=== PATIENT | male | born 1955 | race African-American/Black ===

== ENCOUNTER 2016-06-20 16:31 | Inpatient (IN) | payer MEDICARE, OTHER ==
[2016-06-20] VITALS (11 sets, daily range): BP systolic 90–102; BP diastolic 55–69
[~2016-06-20] VITALS: Ht 162.6 cm; Wt 52.6 kg
--- NOTE | 2016-06-20 16:41 | NUR ---
AT BEDSIDE FOR EVAL
--- NOTE | 2016-06-20 16:45 | NUR ---
BBRA FROM HD [facility]ENTER FOR BLEEDING THROUGH TRACH S/P BEING SUCTIONED. ACTIVE BLEEDING NOTED. RT AT BS. VSS. NOTED GTUBE. HD ACCESS ON L FA. SAFETY AND COMFORT MEASURES PROVIDED. WILL MONITOR.
[2016-06-20] MEDS ORDERED: DESMOPRESSIN 15 MCG in IV NS 0.9% 50 ML IV ONE (17:00)
[2016-06-20] MEDS ORDERED: DDAVP 20 MCG in IV NS 50 ML IV ONE (17:00)
[2016-06-20] MEDS ORDERED: IV SET PRIMARY PUMP SET 1 EA INFUS.SET MC ONE ×4 (17:07→19:38)
--- NOTE | 2016-06-20 17:07 | NUR ---
IV ACCESS STARTED. ART EDUCATOR AT FOR BLOOD DRAW.
[2016-06-20] MEDS ORDERED: CHOL100044 GT (17:14)
[2016-06-20] MEDS ORDERED: RALT400T GT (17:14)
[2016-06-20] MEDS ORDERED: MOME13HF IH (17:14)
[2016-06-20] MEDS ORDERED: ALBU18HF2 IH (17:14)
[2016-06-20] MEDS ORDERED: LOPI1TAB2 GT (17:14)
[2016-06-20] MEDS ORDERED: IPRA12.9 IH (17:14)
[2016-06-20] MEDS ORDERED: CALC200T23 GT (17:14)
[2016-06-20] MEDS ORDERED: AMLO10TA2 GT (17:14)
[2016-06-20] MEDS ORDERED: [UNRECOGNIZED DRUG - CODE] GT (17:14)
[2016-06-20] MEDS ORDERED: ALBU2.5V13 IH ×2 (17:14)
[2016-06-20] MEDS ORDERED: TIOT4MIS5 IH (17:14)
[2016-06-20] MEDS ORDERED: NICO1PAT44 TD (17:14)
[2016-06-20] MEDS ORDERED: MULT-24 GT (17:14)
[2016-06-20] MEDS ORDERED: IPRA0.2S9 IH ×2 (17:14)
[2016-06-20] MEDS ORDERED: VITA1TAB56 GT (17:14)
[2016-06-20] MEDS ORDERED: WARF10TA4 GT (17:14)
--- NOTE | 2016-06-20 17:14 | NUR ---
CALLED NURSING SUP. FOR TELE BED, INFORMED HER PT HAS HIV
--- NOTE | 2016-06-20 17:18 | NUR ---
PT MEDICATED ORDERED. TO BE MONITORED CLOSELY.
--- NOTE | 2016-06-20 17:18 | NUR ---
GEO AT BS.
--- NOTE | 2016-06-20 17:27 | NUR ---
RT PT BROUGHT INTO ER BY PARAMEDICS FOR SOB. PT IS AWAKE AND ALERT, TRACHED WITH A SHILEY 8. PT SX BLOOD TINGED SECRETIONS. PT PLACED ON VENTILATOR DUE TO RESPIRATORY DISTRESS. VENT SETTINGS NOTED. VENT ALARMS ARE SET AND AUDIBLE WITH BVM BY BEDSIDE. LANG PATH THERAPIST CUFF PRESSURE NOTED. VENT IS PLUGGED INTO RED OUTLET. RN AND MD NOTIFIED AND AWARE. PT APPEARS TO BE COMFORTABLE ON CURRENT VENT SETTINGS. WILL CONTINUE TO MONITOR. Addendum: 06/20/16 at 1734 by KERRY DOS SANTOS RT Amended: Links added.
[2016-06-20 17:36] LABS: CALCIUM, SERUM 9.2 mg/dL (8.5-10.1); CARBON DIOXIDE 29 mmol/L (21-32); CHLORIDE 99 mmol/L (98-107); CREATININE 3.8 mg/dL (0.6-1.3); GFR 20 mL/min (>60); GLUCOSE 204 mg/dL (74-106); SODIUM SERUM 135 mmol/L (136-145); UREA NITROGEN, BLOOD 26 mg/dL (7-18)
[2016-06-20 17:42] LABS: ALANINE AMINOTRANSFERASE 18 U/L (12-78); ALBUMIN 2.2 g/dL (3.4-5.0); ALKALINE PHOSPHATASE 152 U/L (46-116); ASPARTATE AMINOTRANSFERASE 14 U/L (15-37); BILIRUBIN,DIRECT 0.2 mg/dL (0.0-0.2); BILIRUBIN,TOTAL 0.4 mg/dL (0.2-1.0); TOTAL PROTEIN, SERUM 8.6 g/dL (6.4-8.2); TROPONIN I < 0.017 ng/mL (0.00-0.056)
--- NOTE | 2016-06-20 17:46 | NUR ---
PT GOING TO TELE 325-2
[2016-06-20 17:53] LABS: INR 2.19 (0.87-1.13); PROTHROMBIN TIME 24.6 SECS (9.5-12.7)
--- NOTE | 2016-06-20 18:02 | NUR ---
REPORT GIVEN TO GAY PIZARRO FOR TELE ROOM 252-2
[2016-06-20] MEDS ORDERED: IV NS 0.9% 500 ML BAG IV ONE (18:30)
--- NOTE | 2016-06-20 18:33 | NUR ---
CALLED ELECTRIC MOTOR REPAIRER GEOPHYSICAL PROSPECTING SURVEYOR, , TRANSFERRED CALL TO DR. LOPEZ
--- NOTE | 2016-06-20 18:41 | NUR ---
CALLED [facility], PRESENTED PT, AWAITING CALL BACK FROM [facility]
[2016-06-20] MEDS ORDERED: IV NS 0.9% 500 ML IV ONE (18:58)
[2016-06-20] MEDS ORDERED: MEROPENEM 1 G in IV NS 0.9% 100 ML IV ONE (19:00)
[2016-06-20] MEDS ORDERED: LEVOFLOXACIN 750 MG /D5W 150ML 150 ML IV ONE ×2 (19:00→19:21)
--- NOTE | 2016-06-20 19:05 | NUR ---
EPIC PAGED, AIRLINE ATTENDANT
--- NOTE | 2016-06-20 19:12 | NUR ---
CALLED NURSING SUP. TO UPGRADE BED TO [facility]
--- NOTE | 2016-06-20 19:17 | NUR ---
CALLED NURSING SUP. TO UPGRADE TO ICU BED
--- NOTE | 2016-06-20 19:21 | NUR ---
REPORT GIVEN TO ADRIÁN PIZARRO FOR SPEEDY.
[2016-06-20] MEDS ORDERED: MAG HYDROX/AL HYDROX/SIMETH 30 ML UDC PO PRN (19:30)
[2016-06-20] MEDS ORDERED: ZOLPIDEM TARTRATE 5 MG TABLET PO PRN (19:30)
[2016-06-20] MEDS ORDERED: HYDROCODONE/APAP 5/325MG 1 EACH TABLET PO PRN (19:30)
[2016-06-20] MEDS ORDERED: Z GUARD REMEDY 2 OZ OINT TP PRN (19:30)
[2016-06-20] MEDS ORDERED: ONDANSETRON HCL/PF 4 MG/2 ML VIAL IVP PRN (19:30)
[2016-06-20] MEDS ORDERED: MAGNESIUM HYDROXIDE 30 ML UDC PO PRN (19:30)
[2016-06-20] MEDS ORDERED: ACETAMINOPHEN 325 MG TABLET PO PRN (19:30)
[2016-06-20] MEDS ORDERED: IPRATROPIUM NEB FS 0.5 MG/2.5 ML AMPUL.NEB IH PRN (19:30)
[2016-06-20] MEDS ORDERED: ENOXAPARIN SODIUM 40 MG/0.4 ML DISP.SYRIN SQ SCH (19:30)
[2016-06-20] MEDS ORDERED: LEVOFLOXACIN 500 MG /D5W 100ML 500 MG in PREMIX 1 EA IV SCH (19:30)
[2016-06-20] MEDS ORDERED: ALBUTEROL FS 2.5 MG/0.5 ML VIAL.NEB IH PRN (19:30)
[2016-06-20] MEDS ORDERED: MEROPENEM 1 G VIAL IV ONE (19:38)
[2016-06-20] MEDS ORDERED: IV NS 0.9% 100 ML IV ONE (19:38)
[2016-06-20 19:51] LABS: BASOPHILS # (AUTO) 0.1 /CMM (0.0-0.2); BASOPHILS % (AUTO) 0.4 % (0.0-2.0); EOSINOPHILS # (AUTO) 0.1 /CMM (0.0-0.7); EOSINOPHILS % (AUTO) 0.3 % (0.0-6.0); HEMATOCRIT 25 % (39-51); LYMPHOCYTES # (AUTO) 2.1 /CMM (0.8-4.8); LYMPHOCYTES % (AUTO) 9.3 % (20.0-44.0); MEAN CORPUSCULAR HEMOGLOBIN 30 PG (26.0-33.0); MEAN CORPUSCULAR HGB CONC 32 g/dl (31.0-36.0); MEAN CORPUSCULAR VOLUME 95 fL (80-96); MONOCYTES # (AUTO) 1.5 /CMM (0.1-1.30); MONOCYTES % (AUTO) 6.7 % (2.0-12.0); NEUTROPHILS # (AUTO) 18.5 /CMM (1.8-8.9); NEUTROPHILS % (AUTO) 83.3 % (43.0-81.0); PLATELET COUNT (AUTO) 806 /CMM (150-450); RDW COEFFICIENT OF VARIATION 18.6 (11.5-15.0); RED BLOOD CELL COUNT(AUTO) 2.62 MIL/uL (4.5-6.0); WHITE BLOOD COUNT (AUTO) 22.3 K/uL (4.3-11.0)
--- NOTE | 2016-06-20 19:56 | NUR ---
STARTED A SECOND IV ACCESS ON THE RFA G20
[2016-06-20 20:15] LABS: BAND % (MANUAL) 3 % (0.0-5.0); EOSINOPHILS % (MANUAL) 1 % (0-4); LYMPHOCYTES % (MANUAL) 10 % (16-48); MONOCYTES % (MANUAL) 7 % (0-11.0); NEUTROPHILS % (MANUAL) 79 (42-76)
[2016-06-20 20:16] LABS: ANISOCYTOSIS 1+; PLATELET ESTIMATE INCREASED; ROULEAUX 1+
--- NOTE | 2016-06-20 20:23 | NUR ---
REPORT GIVEN TO [facility] FOR SPEEDY.
--- NOTE | 2016-06-20 20:46 | NUR ---
Transported to ICU room 256 via als protocol with RT EMT and RN, no incident noted.
[2016-06-20] MEDS: MEROPENEM 1 G in IV NS 0.9% 100 ML IV SCH (21:00)
--- NOTE | 2016-06-20 21:00 | NUR ---
ICU/FIELD ARTILLERY OFFICER RECEIVED PT FROM ER, PLACED PT ON MONITOR. PICTURE WOUND DOCUMENTATION DONE. RT HERE PLACE PT ON VENT, TOLERATING CURRENT VENT SETTING. ALSO BELONGINGS LIST WAS DONE, WHICH WAS NOT DONE IN ER. PT CLEANED AND REPOSTION. G/TUBE FLUSHED. TRACH WAS CLEANED FROM BLOOD SECRETIONS. MRSA SWAB DONE, WHICH WAS NOT DONE IN ER. CALL LIGHT WITH REACH. PT APPEARS COMFORTABLE ON CURRENT VENT SETTINGS.
[2016-06-20] MEDS: ALBUTEROL FS 2.5 MG/0.5 ML VIAL.NEB IH SCH (21:25)
[2016-06-20] MEDS: IPRATROPIUM NEB FS 0.5 MG/2.5 ML AMPUL.NEB IH SCH (21:25)
--- NOTE | 2016-06-20 22:10 | NUR ---
ICU/HOT REPAIRMAN CALLED GOT PT'S HISTORY, AND ADVANCE DIRECTIVES OF A FULL CODE. CHARGE NURSE ED MADE AWARE OF THIS.
--- NOTE | 2016-06-20 23:55 | NUR ---
ICU/NURSING PROFESSOR CORPORATE OFFICE, BJ PATEL CALLED TO INFORM THAT PT IS ON A SEPTIC PROTOCOL. AND THAT PT SHOULD RECEIVE ANOTHER 1000ML OF FLUID. COOPERATE BJ Azul WAS TOLD THAT THIS PT IS EDRD WITH HD THAT WAS NOT COMPLETE DUE TO BLEEDING, PLUS PT HAS RIGHT SIDE INFILTRATES AND RIGHT SIDE EFFUSION. HE SAID PT IS SUPPOSED TO AT LEAST GET 126/HR OF FLUID TIL 1000ML IS REACH. ALSO INFORMED THIS PERSON ABOUT HISTORY. TOLD TO CALL MD TO GET JUSTIFICATION ON WHY PROTOCOL WAS NOT FOLLOWED, CHARGE NURSE AWARE OF CALL, NOTIFIED MD. LATIC ACID IS 1.5, BLOOD PRESSURE IS CURRENTLY AND HAS BEEN 90'S, 98/63@2400
[2016-06-21] VITALS (69 sets, daily range): BP systolic 89–117; BP diastolic 59–72
--- NOTE | 2016-06-21 00:18 | NUR ---
ICU/DIRECTOR DIGITAL CATALOGUE MD STEWRAT WAS CALLED ABOUT SITUATION AND CALL FROM CORPORATE OFFICE ABOUT SEPSIS PROTOCOL AND NEED FOR ADDITION FLUID. MD STEWART SAID THAT SHE WILL MAKE A NOTE ABOUT THIS AND NO FLUIDS TO BE GIVEN DUE TO ESRD. CHARGE NURSE AWARE OF THIS CALL. AND SHOULD HAVE DOCUMENTATION FROM MD SUPPORTING THIS CONVERSATION
[2016-06-21] MEDS ORDERED: IPRATROPIUM NEB FS 0.5 MG/2.5 ML AMPUL.NEB ONE (01:21)
[2016-06-21] MEDS ORDERED: ALBUTEROL FS 2.5 MG/0.5 ML VIAL.NEB ONE (01:21)
[2016-06-21] MEDS: IPRATROPIUM NEB FS 0.5 MG/2.5 ML AMPUL.NEB IH SCH ×4 (01:25→20:13)
[2016-06-21] MEDS: ALBUTEROL FS 2.5 MG/0.5 ML VIAL.NEB IH SCH ×4 (01:25→20:13)
--- NOTE | 2016-06-21 02:05 | NUR ---
ICU/BRAKE REPAIRER RAILROAD DR. STEWART UP TO SEE PT, NO NEW ORDERS WERE RECEIVED AT THIS TIME. BUT DID SAY PT TO HD TODAY.
[2016-06-21] MEDS ORDERED: MEROPENEM 1 G VIAL IV ONE (03:36)
[2016-06-21] MEDS ORDERED: IV NS 0.9% 250 ML IV PRN (04:00)
[2016-06-21] MEDS ORDERED: IV NS 0.9% 250 ML IV ONE ×2 (04:08→08:30)
[2016-06-21] MEDS ORDERED: IV NS 0.9% 100 ML IV ONE (04:08)
[2016-06-21] MEDS ORDERED: SECONDARY IV SET 1 EA INFUS.SET MC ONE (04:08)
[2016-06-21] MEDS: MEROPENEM 1 G in IV NS 0.9% 100 ML IV SCH (04:17)
[2016-06-21 05:11] LABS: CALCIUM, SERUM 8.2 mg/dL (8.5-10.1); CREATININE 4.7 mg/dL (0.6-1.3); PHOSPHORUS 2.3 mg/dL (2.5-4.9); POTASSIUM 4.7 mmol/L (3.5-5.1)
[2016-06-21 05:33] LABS: BASOPHILS % (AUTO) 0.3 % (0.0-2.0); EOSINOPHILS % (AUTO) 0.3 % (0.0-6.0); LYMPHOCYTES # (AUTO) 0.3 /CMM (0.8-4.8); LYMPHOCYTES % (AUTO) 4.2 % (20.0-44.0); MEAN CORPUSCULAR HEMOGLOBIN 30 PG (26.0-33.0); MEAN CORPUSCULAR HGB CONC 33 g/dl (31.0-36.0); MEAN CORPUSCULAR VOLUME 93 fL (80-96); MONOCYTES # (AUTO) 0.7 /CMM (0.1-1.30); MONOCYTES % (AUTO) 8.7 % (2.0-12.0); NEUTROPHILS # (AUTO) 7.1 /CMM (1.8-8.9); NEUTROPHILS % (AUTO) 86.5 % (43.0-81.0); PLATELET COUNT (AUTO) 447 /CMM (150-450); RDW COEFFICIENT OF VARIATION 18.1 (11.5-15.0); WHITE BLOOD COUNT (AUTO) 8.2 K/uL (4.3-11.0)
[2016-06-21 05:38] LABS: RED BLOOD CELL COUNT(AUTO) 1.98 MIL/uL (4.5-6.0)
[2016-06-21 05:39] LABS: HEMATOCRIT 18 % (39-51)
--- NOTE | 2016-06-21 05:54 | NUR ---
ICU/SKIN GRADER H/H WAS 6.0/18 FROM 8.0, MD WAS CALLED ABOUT THIS. TO HAVE PT TYPE AND CROSS MATCH, THEN GIVEN DURING HD. AWAIT MD ORDERED.
[2016-06-21 05:59] LABS: EOSINOPHILS % (MANUAL) 1 % (0-4); LYMPHOCYTES % (MANUAL) 5 % (16-48); MONOCYTES % (MANUAL) 13 % (0-11.0); NEUTROPHILS % (MANUAL) 81 (42-76); PLATELET ESTIMATE INCREASED
[2016-06-21 06:00] LABS: ANISOCYTOSIS 3+; HYPOCHROMASIA 3+
--- NOTE | 2016-06-21 06:26 | NUR ---
ICU/FOREST PATHOLOGY PROFESSOR OF PT CALLED CHRISTOPHER RIVERA TO GIVE CONSENT TO GIVE BLOOD, GAVE CONSENT FOR BLOOD TRANSFUSION. CHARGE NURSE ED CO-SIGNED THE OK FOR BLOOD TRANSFUSION. NOW AWAIT FOR MD TO CALL BACK WITH ORDERS TO TYPE AND CROSS AND HOW MANY UNITS. IF MD DOES NOT CALL BACK, THEN PASS ON TO DAY SHIFT.
[2016-06-21] MEDS ORDERED: PANTOPRAZOLE 40 MG TABLET.DR PO SCH (07:30)
--- NOTE | 2016-06-21 07:31 | NUR ---
ORNAMENTAL METAL ERECTOR RECEIVED PATIENT FROM THE PREVIOUS SHIFT. PATIENT IN BED. RESTING COMFORTABLY. NO ACUTE RESPIRATORY DISTRESS. TRACH SECRETIONS MONITORED. TEMP 99.1. STABLE VITAL SINGS. ALERT AND ORIENTED X 4. SINUS RHYTHM ON MONITOR. TURNED AND REPOSITIONED FOR COMFORT AND WOUND PREVENTION. WILL CONTINUE TO MONITOR AND PROVIDE CARE.
[2016-06-21] MEDS ORDERED: BLOOD IV SET 1 EA INFUS.SET MC ONE (08:29)
--- NOTE | 2016-06-21 08:43 | NUR ---
RT PATIENT REC'D TRACHED ON [facility] VENT WITH ORDERED SETTINGS VINEET WELL. VENT ALARMS CHECKED + AUDIBLE. BILAT DIM B/S HEARD. SX'D W/ MOD AMT OF BLOOD TINGED SEMITHICK SECRETIONS. AMBU BAG AT HOB Addendum: 06/21/16 at 0845 by DOMINGO MONREAL RT Amended: Links added.
[2016-06-21] MEDS ORDERED: Medication Not On Formulary EA (Tiotropium Bromide (Spiriva Respimat) 2 PUFF) IH SCH (09:00)
[2016-06-21] MEDS ORDERED: LAMIVUDINE 50 MG/5 ML PO SCH (09:00)
[2016-06-21 09:25] LABS: INR 2.05 (0.87-1.13)
--- NOTE | 2016-06-21 09:54 | NUR ---
PETS AND PET SUPPLIES SALESPERSON RN SPOKE TO TEMITOPE RN FROM [facility] AT [phone]. RN CONFIRMED WITH TEMITOPE THAT PATIENT WAS RECEIVING LAMIVUDINE AT THE LONG TERM SETTING. RN CONFIRMED WITH TEMITOPE THAT PATIENT HAS NOT HAD ANY ALLERGIC REACTIONS TO THE MEDICATION DURING THE STAY AT THE LONG TERM. LAMIVUDINE ALLERGY REMOVED FROM PATIENT'S CHART. PHARMACY AWARE. CHARGE NURSE AWARE.
[2016-06-21] MEDS ORDERED: RENAL NOVASOURCE 1,000 ML BOTTLE GT PRN (10:00)
[2016-06-21] MEDS: PANTOPRAZOLE 40 MG VIAL IV SCH (10:20)
[2016-06-21] MEDS: RITONAVIR PO SCH ×2 (10:20→16:44)
[2016-06-21] MEDS: LOPINAVIR PO SCH ×2 (10:20→16:44)
[2016-06-21] MEDS: VITAMIN B COMP W-C 1 TAB TABLET GT SCH (10:21)
[2016-06-21] MEDS: MULTIVITAMINS,THERAPEUTIC 1 UDTAB TABLET GT SCH (10:21)
[2016-06-21] MEDS: RALTEGRAVIR POTASSIUM 400 MG TABLET PO SCH ×2 (10:21→16:44)
[2016-06-21 10:55] LABS: BASOPHILS % (AUTO) 0.4 % (0.0-2.0); EOSINOPHILS % (AUTO) 0.3 % (0.0-6.0); LYMPHOCYTES # (AUTO) 0.4 /CMM (0.8-4.8); LYMPHOCYTES % (AUTO) 5.7 % (20.0-44.0); MEAN CORPUSCULAR HEMOGLOBIN 30 PG (26.0-33.0); MEAN CORPUSCULAR HGB CONC 32 g/dl (31.0-36.0); MEAN CORPUSCULAR VOLUME 93 fL (80-96); MONOCYTES # (AUTO) 0.7 /CMM (0.1-1.30); MONOCYTES % (AUTO) 8.6 % (2.0-12.0); NEUTROPHILS # (AUTO) 6.7 /CMM (1.8-8.9); PLATELET COUNT (AUTO) 470 /CMM (150-450); RDW COEFFICIENT OF VARIATION 18.2 (11.5-15.0); WHITE BLOOD COUNT (AUTO) 7.9 K/uL (4.3-11.0)
[2016-06-21 10:57] LABS: RED BLOOD CELL COUNT(AUTO) 1.97 MIL/uL (4.5-6.0)
[2016-06-21 11:04] LABS: HEMATOCRIT 18 % (39-51); HEMOGLOBIN 5.9 g/dL (13.5-17.5)
--- NOTE | 2016-06-21 11:17 | NUR ---
STAFF DEVELOPMENT EDUCATOR PATIENT WAS SEEN AND EXAMINED BY THE ROOFER ASSISTANT. HEMOGLOBIN 5.9 ON REPEAT DRAW. PATIENT WILL RECEIVE TWO UNITS OF PRBC WITH DIALYSIS PER ROOFER ASSISTANT'S PARAMETERS. BLOOD UNITS READY AT THE BLOOD BANK.PATIENT REMAINS OFF PRESSORS. DIALYSIS SERVICES CALLED AND PER COORDINATOR DIALYSIS NURSE WILL BE HERE WITHIN 1-2 HOURS.
[2016-06-21] MEDS: LAMIVUDINE 50 MG/5 ML PO SCH (11:21)
[2016-06-21 11:35] LABS: ANISOCYTOSIS 2+; BAND % (MANUAL) 2 % (0.0-5.0); HYPOCHROMASIA 1+; LYMPHOCYTES % (MANUAL) 9 % (16-48); MONOCYTES % (MANUAL) 7 % (0-11.0); NEUTROPHILS % (MANUAL) 82 (42-76); PLATELET ESTIMATE INCREASED
--- NOTE | 2016-06-21 12:01 | NUR ---
RT PER DR ELLIOTT DAILY ABG NOT NECESSARY TODAY, PATIENT STABLE WITH NO DISTRESS OR SOB
[2016-06-21] MEDS ORDERED: EPOETIN ALFA (10,000 UNIT) 10,000 UNIT/ML VIAL SQ ONE (13:00)
--- NOTE | 2016-06-21 13:36 | NUR ---
PROFESSOR OF ENVIRONMENTAL STUDIES PATIENT IS RECEIVING FIRST UNIT OF BLOOD AT THIS WITH DIALYSIS. SECOND UNIT OF BLOOD WILL BE INFUSED AFTER. PLEASE SEE DIALYSIS PROGRESS NOTES.
[2016-06-21] MEDS ORDERED: NEUTRA PHOS 1 POWD.PACKET GT ONE (15:30)
[2016-06-21] MEDS: MEROPENEM 500 MG in IV NS 0.9% 50 ML IV SCH (16:44)
[2016-06-22] VITALS (34 sets, daily range): BP systolic 91–110; BP diastolic 60–70
[2016-06-22] MEDS: ALBUTEROL FS 2.5 MG/0.5 ML VIAL.NEB IH SCH ×4 (01:27→20:01)
[2016-06-22] MEDS: IPRATROPIUM NEB FS 0.5 MG/2.5 ML AMPUL.NEB IH SCH ×4 (01:27→20:01)
[2016-06-22] MEDS: MEROPENEM 500 MG in IV NS 0.9% 50 ML IV SCH ×2 (04:08→16:59)
[2016-06-22 04:49] LABS: BASOPHILS % (AUTO) 0.3 % (0.0-2.0); EOSINOPHILS # (AUTO) 0.1 /CMM (0.0-0.7); EOSINOPHILS % (AUTO) 0.9 % (0.0-6.0); HEMATOCRIT 27 % (39-51); LYMPHOCYTES # (AUTO) 0.4 /CMM (0.8-4.8); MEAN CORPUSCULAR HEMOGLOBIN 30 PG (26.0-33.0); MEAN CORPUSCULAR HGB CONC 33 g/dl (31.0-36.0); MEAN CORPUSCULAR VOLUME 91 fL (80-96); MONOCYTES # (AUTO) 0.7 /CMM (0.1-1.30); MONOCYTES % (AUTO) 11.1 % (2.0-12.0); NEUTROPHILS # (AUTO) 5.5 /CMM (1.8-8.9); NEUTROPHILS % (AUTO) 81.7 % (43.0-81.0); PLATELET COUNT (AUTO) 493 /CMM (150-450); WHITE BLOOD COUNT (AUTO) 6.7 K/uL (4.3-11.0)
[2016-06-22 05:08] LABS: CALCIUM, SERUM 8.2 mg/dL (8.5-10.1); CREATININE 4.4 mg/dL (0.6-1.3); MAGNESIUM 1.9 mg/dL (1.8-2.4); PHOSPHORUS 2.5 mg/dL (2.5-4.9); POTASSIUM 3.9 mmol/L (3.5-5.1)
--- NOTE | 2016-06-22 07:52 | NUR ---
ICU/RN INITIAL NOTES,AM RECEIVED REPORT FROM NIGHT NURSE. PT ALERT, FOLLOWS COMMANDS. PT ON VENT SETTINGS ORDERED BY NORAH VALENCIA 8, TOLERATING WELL, NO ACUTE DISTRESS NOTED. PT ON TELE, SINUS. GTUBE FEEDING INFUSING, TOLERATING WELL, PT ANURIC. PIV'S PATENT AND INTACT, NO S/S OF INFECTION OR INFILTRATION NOTED. POSSIBLE TRANSFER TO [place], AWAITING FOR FURTHER ORDERS. ALL NEEDS WILL BE MET,SAFETY MEASURES TAKEN, BED IN LOW POSITION, SIDE RAILS UP, CALL LIGHT WITHIN REACH.
[2016-06-22] MEDS: LOPINAVIR PO SCH ×2 (08:24→16:59)
[2016-06-22] MEDS: MULTIVITAMINS,THERAPEUTIC 1 UDTAB TABLET GT SCH (08:24)
[2016-06-22] MEDS: PANTOPRAZOLE 40 MG VIAL IV SCH (08:24)
[2016-06-22] MEDS: LAMIVUDINE 50 MG/5 ML PO SCH (08:24)
[2016-06-22] MEDS: RITONAVIR PO SCH ×2 (08:24→16:59)
[2016-06-22] MEDS: RALTEGRAVIR POTASSIUM 400 MG TABLET PO SCH ×2 (08:24→16:59)
[2016-06-22] MEDS: VITAMIN B COMP W-C 1 TAB TABLET GT SCH (08:24)
--- NOTE | 2016-06-22 15:50 | NUR ---
WOMEN'S LACROSSE COACH CALLED DR. GARDNER AND INFORMED ABOUT THE NEED OF A DISCHARGE SUMMARY. MD SAID HE WILL INPUT ONE SOON.
[2016-06-22] MEDS ORDERED: MERO1VIA3 IV (16:45)
--- NOTE | 2016-06-22 17:41 | NUR ---
ICU/RN: EXIT CARE DONE, REPORT ENDORSED TO LIFE ENRICHMENT DIRECTOR KRISTOPHER AT [place]. PT SCHEDULED FOR TRANSFER AT 1999.
--- NOTE | 2016-06-22 18:29 | NUR ---
RT END OF THE SHIFT REPORT: PT. 61 Y OLD MALE REMAIN TRACH SHILEY # 8 ON VENT WITH NOTED SETTINGS, ALARMS ARE SET AND FUNCTIONAL, B/S RALES/RHONCHI BILATERALLY SUX' FOR MINIMAL EMERY SECRETIONS, NO DISTRESS NOTED NO ABG PER DR. HUERTAS PT. VINEET. WELL. CONTINUED FOR MONITOR. VENT PLUGGED INTO RED OUTLET. EQUAL CHEST RISE NOTED. HME CHANGED, AMBU BAG REMAIN AT THE BEDSIDE. PT. REMAIN STABLE. TX'S GIVEN INLINE NO ADVERSE REACTION NOTED. REPORT WILL PASS TO PM SHIFT Addendum: 06/22/16 at 1831 by LIZANDRO HOWELL RT Amended: Links added.
--- NOTE | 2016-06-22 19:24 | NUR ---
ICU ENDING NOTES,AM REPORT ENDORSED TO NIGHT NURSE FOR CONTINUATION OF CARE. PT SCHEDULED FOR PICKUP AT 1999. EXIT CARE DONE, WOUND PHOTOS TAKEN. REPORT ENDORSED TO RN AT [place]. ALL NEEDS MET. PT ON VENT SETTINGS ORDERED, NO DISTRESS NOTED. SINUS ON TELE. PT CLEAN AND DRY, TURNED AND REPOSITIONED. WILL CONTINUE CARE
--- NOTE | 2016-06-22 19:35 | NUR ---
ROD MILL TENDER. INITIAL ASSESSMENT. RECEIVED THE PT REST ON THE BED. AWAKE, ALERT, FOLLOW COMMANDS. POTATO CHIP FRIER SHOWING NSR. TRACH TO VENT CONNECTED.SHILEY #8,AC 16,TV 500, FIO2 40%, PEEP 5. SAT 98%. NO ACUTE DISTRESS NOTED. TRACHEOSTOMY SITE NO BLEEDING NOTED. GT INTACT. NOVA SOURCE 3O ML/H. HOB ELEVATED. TURN AND REPOSITION Q2H. WILL CONTINUE TO MONITOR VITALS.
[2016-06-22] MEDS ORDERED: LEVOFLOXACIN 250 MG /D5W 50 ML 250 MG in PREMIX 1 EA IV SCH (20:00)
--- NOTE | 2016-06-22 20:23 | NUR ---
VALUE STREAM MANAGER. TRANSFER THE PT TO [facility] . REPORT GIVEN TO EMT JUAREZ ALSTON. PT IS STABLE.
[2016-06-23] MEDS ORDERED: EPOETIN ALFA (10,000 UNIT) 10,000 UNIT/ML VIAL SQ ONE (09:30)
== END 2016-06-22 21:00 | disposition short-term general hospital (02) | DRG 871 ==
LOC: ER 16:35 → ICU 20:18
PROVIDERS: ADMIT Internal Medicine; ATTEND Internal Medicine
PROC: 5A1945Z Respiratory Ventilation, 24-96 Consecutive Hours (ICD-10-PCS; principal; 2016-06-20)
PROC: 5A1D00Z (ICD-10-PCS; 2016-06-21)
PROC: 30233N1 Transfusion of Nonautologous Red Blood Cells into Peripheral Vein, Percutaneous Approach (ICD-10-PCS; 2016-06-21)
DX: A41.9 Sepsis, unspecified organism (principal); J69.0 Pneumonitis due to inhalation of food and vomit; J96.20 Acute and chronic respiratory failure, unspecified whether with hypoxia or hypercapnia; N18.6 End stage renal disease; G93.40 Encephalopathy, unspecified; J15.6 Pneumonia due to other Gram-negative bacteria; J96.21 Acute and chronic respiratory failure with hypoxia; E44.0 Moderate protein-calorie malnutrition; I13.2 Hypertensive heart and chronic kidney disease with heart failure and with stage 5 chronic kidney disease, or end stage renal disease; J44.0 Chronic obstructive pulmonary disease with (acute) lower respiratory infection; D62 Acute posthemorrhagic anemia; K92.0 Hematemesis; Z68.1 Body mass index [BMI] 19.9 or less, adult; J95.01 Hemorrhage from tracheostomy stoma; Z99.2 Dependence on renal dialysis; E11.22 Type 2 diabetes mellitus with diabetic chronic kidney disease; E78.5 Hyperlipidemia, unspecified; I25.10 Atherosclerotic heart disease of native coronary artery without angina pectoris; I50.9 Heart failure, unspecified; R13.10 Dysphagia, unspecified; K21.9 Gastro-esophageal reflux disease without esophagitis; F41.9 Anxiety disorder, unspecified; Z85.21 Personal history of malignant neoplasm of larynx; D63.8 Anemia in other chronic diseases classified elsewhere; Z79.899 Other long term (current) drug therapy; Z92.3 Personal history of irradiation; B19.20 Unspecified viral hepatitis C without hepatic coma; D75.89 Other specified diseases of blood and blood-forming organs; K70.30 Alcoholic cirrhosis of liver without ascites; I95.9 Hypotension, unspecified; R65.20 Severe sepsis without septic shock; I48.91 Unspecified atrial fibrillation; Z87.891 Personal history of nicotine dependence; Y83.9 Surgical procedure, unspecified as the cause of abnormal reaction of the patient, or of later complication, without mention of misadventure at the time of the procedure
CPT/HCPCS: 31720; 36415; 71010-TC; 80048-TC; 80076-TC; 83605-TC; 83735-TC; 84100-TC; 84484-TC; 85025-TC; 85730-TC; 86850-TC; 86921-TC; 87040-TC; 87081-TC; 90935-TC; 94002-TC; 94003-TC; 94760-TC; 99082-TC; A4216; A4606; A4623; A6403; C9113; J0885; J1956; J2185; J2597; J7030; J7040; J7050; P9016-BL; Z7610